=== PATIENT | female | born 1970 | race Caucasian/White ===

== ENCOUNTER → 2019-12-28 14:11 | Outpatient (BNVA) | payer MEDICAID, SELFPAY | PROVIDERS: Family Provider Internal Medicine; PCP Internal Medicine; Visit Provider Psychiatry & Neurology Psychiatry | DX: F33.42 Major depressive disorder, recurrent, in full remission (principal); F17.210 Nicotine dependence, cigarettes, uncomplicated | CPT/HCPCS: 99213 ==

== ENCOUNTER 2020-04-01 07:38 | Outpatient (CLI) | payer MEDICAID, SELFPAY ==
--- NOTE | 2020-04-01 | MR_ITS ---
WS: [id number] MRI CERVICAL SPINE NONCONTRAST TECHNIQUE: Sagittal T1, T2 and STIR imaging. Axial T2, gradient, and fiesta imaging. Images moderatel y degraded by patient motion. CLINICAL INFORMATION: OTHER SYMPTOMS INVOLVING MUSL SKEL COMPARISON: None. FINDINGS: Straightening of the normal cervical lordosis. Prominent central disc protrusion C4-5 with mild inden tation on cervical cord. Mild to moderate central canal stenosis. Cord signal appears normal. C2-C3: Normal. C3-C4: Mild disc bulging with slight effacement of ventral thecal sac. Mild left and no significant r ight foraminal narrowing. Spinal canal is patent. Mild facet arthropathy. C4-C5: Prominent central and right pericentral disc protrusion with indentation on the right ventral cervical cord. Mild to moderate central canal stenosis. Moderate left greater than right bony foramin al narrowing. C5-C6: Small right pericentral protrusion with slight contact cervical cord. Mild central canal steno sis. Mild to moderate bilateral foraminal narrowing. C6-C7: Small central disc protrusion. Spinal canal is patent. Mild right and no significant left fora maranda narrowing. C7-T1: Normal. Visualized brain stem structures: Normal. Prevertebral soft tissues: Normal. MR/MR cervical spin wo con* [id number] IMPRESSION: 1. Prominent right pericentral disc protrusion C4-5 extending cephalad posteri or to the C4 vertebral body. This results in mild to moderate central canal shruti nosis with slight indentation on the cervical cord eccentric to the right. 2. Small right pericentral protrusion C5-C6 with mild central canal stenosis. 3. Multilevel mild to moderate bony foraminal narrowing worse at bilateral C4- 5 and bilateral C5-6. 4. Tiny central protrusion C6-C7.
--- NOTE | 2020-04-01 08:45 | XR_ITS ---
WS: [id number] CERVICAL SPINE TECHNIQUE: 3 views of the cervical spine CLINICAL INFORMATION: pain COMPARISON: None. FINDINGS: Straightening of the normal cervical lordosis. Mild spondylitic changes. Disc space narrowing worse a t C4-5. Normal C1-2 articulation. Mild cervical curve convex right. Moderate facet arthropathy mid cervical spine. XR/XR cervical spine 3V* [id number] IMPRESSION: Mild spondylitic changes with disc space narrowing worse at C4-5.
== END 2020-04-01 07:39 | disposition home or self-care (01) ==
LOC: RADWPI 07:40
PROVIDERS: Family Provider Internal Medicine; PCP Internal Medicine; Visit Provider Orthopaedic Surgery
DX: R29.898 Other symptoms and signs involving the musculoskeletal system (principal); M50.221 Other cervical disc displacement at C4-C5 level; M48.02 Spinal stenosis, cervical region
CPT/HCPCS: 72040; 72141

== ENCOUNTER → 2020-09-11 11:57 | Outpatient (BNVA) | payer MEDICAID, SELFPAY | PROVIDERS: Family Provider Internal Medicine; PCP Internal Medicine; Visit Provider Psychiatry & Neurology Psychiatry | DX: F33.41 Major depressive disorder, recurrent, in partial remission (principal); F17.210 Nicotine dependence, cigarettes, uncomplicated | CPT/HCPCS: 99214 ==

== ENCOUNTER → 2020-10-08 08:16 | Outpatient (BNVA) | payer MEDICAID, SELFPAY | PROVIDERS: Family Provider Internal Medicine; PCP Internal Medicine; Visit Provider Psychiatry & Neurology Psychiatry | DX: F33.42 Major depressive disorder, recurrent, in full remission (principal); F17.210 Nicotine dependence, cigarettes, uncomplicated | CPT/HCPCS: 99213 ==

== ENCOUNTER → 2020-11-14 09:47 | Outpatient (BNVA) | payer MEDICAID, SELFPAY | PROVIDERS: PCP Internal Medicine; Visit Provider Podiatrist Foot & Ankle Surgery | DX: M79.672 Pain in left foot (principal) | CPT/HCPCS: 73630 ==

== ENCOUNTER 2020-11-14 11:23 | Outpatient (CLI) | payer MEDICAID, SELFPAY | END 2020-11-14 11:24 | disposition home or self-care (01) | LOC: SPT 11:23 | PROVIDERS: PCP Internal Medicine; Visit Provider Podiatrist Foot & Ankle Surgery | DX: Z46.89 Encounter for fitting and adjustment of other specified devices (principal); S91.102D Unspecified open wound of left great toe without damage to nail, subsequent encounter; X58.XXXD Exposure to other specified factors, subsequent encounter | CPT/HCPCS: 97760; L4361 ==

== ENCOUNTER → 2021-03-14 08:30 | Outpatient (BNVA) | payer MEDICAID, SELFPAY | PROVIDERS: PCP Internal Medicine; Visit Provider Psychiatry & Neurology Psychiatry | DX: F33.42 Major depressive disorder, recurrent, in full remission (principal); F17.210 Nicotine dependence, cigarettes, uncomplicated | CPT/HCPCS: 99213 ==

== ENCOUNTER → 2021-05-02 12:51 | Outpatient (BNVA) | payer MEDICAID, SELFPAY | PROVIDERS: PCP Internal Medicine; Visit Provider Psychiatry & Neurology Psychiatry | DX: F33.42 Major depressive disorder, recurrent, in full remission (principal); F17.210 Nicotine dependence, cigarettes, uncomplicated | CPT/HCPCS: 99213 ==

== ENCOUNTER → 2021-05-12 09:21 | Outpatient (BNVA) | payer MEDICAID, SELFPAY | PROVIDERS: PCP Internal Medicine; Referring Provider Internal Medicine; Visit Provider Orthopaedic Surgery | DX: M25.569 Pain in unspecified knee (principal); M17.12 Unilateral primary osteoarthritis, left knee | CPT/HCPCS: 73560; 73565 ==

== ENCOUNTER 2021-06-08 16:12 | Emergency (ER) | payer MEDICAID, SELFPAY ==
[2021-06-08 16:30] VITALS: BP 127/73; PULSE 82; RESP 19; TEMP 36.9; O2SAT 92
--- NOTE | 2021-06-08 17:07 | ED_ITS ---
Documented by User: Everett Rhodes MD 06/10/21 14:42 HPI - General Adult General: Chief complaint: General Medical Stated complaint: COUGH NAUSEA SOB Time Seen by Provider: 06/08/21 17:13 History of Present Illness: HPI narrative: Ms. Rodríguez is a 50-year-old lady with significant past medical history of hypertension, hyperlipidemia, insulin- dependent diabetic, tobaccoism who presents emergency department due to shortness of breath, cough, and loss of voice. Symptom onset was gradual approximately 2 weeks ago. She initially had a loss of voice however subsequently developed cough. She has a sore throat and generalized malaise. Overall the course of symptoms has been worsening. She has not tried home medications. Her symptoms are worse with coughing and talking but do not go with rest. There is no trismus associated with her symptoms. No pharyngeal lesions reported. No other specific exacerbating or alleviating factors Review of Systems General: Reports: 10 or more systems reviewed and unremarkable except in HPI and below Narrative: CONSTITUTIONAL: denies fever, fatigue, weakness EYES - denies pain, denies loss of vision EARS - denies ear issues. NOSE - denies congestion or rhinorrhea. THROAT -mildly sore throat but denies difficulty swallowing. Raspy voice without trismus, evidence of intraoral asymmetry or infection. CARDIOVASCULAR - denies chest pain and palpitations RESPIRATORY -mild shortness of breath and cough GASTROINTESTINAL - denies abdominal pain, no nausea vomiting, no changes in bowel habits GENITOURINARY - denies dysuria or urinary frequency MUSCULOSKELETAL- denies deformity or pain SKIN - denies rashes or new changed skin lesions NEUROLOGIC - denies focal weakness or sensory changes HEMATOLOGIC/LYMPHATIC - denies easy bruising or lymphadenopathy. CR[facility]ICAL ACCESS [facility]OSPITAL ED PFSH: Medical History Cervical radiculopathy Cigarette smoker Depression, major, recurrent, in complete remission Diabetes mellitus Hypertension Surgical History History of carpal tunnel release History of knee surgery Family History Other Diabetes Denies family history of Cancer Social History Quit status (tobacco): not considering quitting Second hand smoke exposure: No Alcohol intake: never Household members: other Details: Friend Current occupational status: employed Current occupation: [employer], closed right now due to Covid-19 Physical Exam Narrative: EXAM NARRATIVE: GENERAL/CONSTITUTIONAL -mildly ill-appearing. No acute distress. Raspy quiet voice that is strained Eyes - PERRL, no conjunctival injection ENMT - Atraumatic external nose and ears. Moist mucous membranes NECK - supple. trachea midline CARDIOVASCULAR - regular rate and rhythm. Peripheral pulses 2+ and equal RESPIRATORY -moderately diminished to auscultation bilaterally. No retractions or accessory muscle use. ABDOMEN/GI - Nontender/Nondistended. No tenderness to percussion or evidence of peritonitis MSK - Extremities without obvious deformity or tenderness to palpation SKIN - Warm, Dry NEURO - alert and appropriately oriented. strength and sensation intact. Moves all extremities equally. PSYCH - Appropriate mood and affect Course ED course: - Patient was seen and evaluated by me at bedside - Patient placed on cardiac monitors, IV access obtained - Initial evaluation notable for mildly ill appearance, increased respiratory effort, raspy voice. no evidence of upper airway compromise or other intraoral/pharyngeal pathology -Symptom control ordered. -Patient care handed off to overnight ED physician 50 completion of imaging and reevaluation for symptom care. Vital Signs: Vital signs: Vital Signs Temperature 98.5 F 06/08/21 16:30 Pulse Rate 88 06/08/21 21:20 Respiratory Rate 22 H 06/08/21 21:20 Blood Pressure 168/98 06/08/21 21:20 Pulse Oximetry 90 06/08/21 21:20 MDM - General Adult Medical Records: Attestation: I reviewed the patient's medical records. Lab Data: Attestation: I reviewed the patient's lab results. Labs: Lab Results 06/08/21 06/08/21 Range/Units 18:27 18:27 WBC 7.1 (4.0-10.0) 10^3/ uL RBC 4.89 (4.1-5.3) 10^6/u L Hgb 14.7 (11.5-15.3) g/dL Hct 45.0 (37.0-47.0) % MCV 92.0 (81-99) fl MCH 30.1 (28.0-34.0) pg MCHC 32.7 (30.0-36.0) g/dL RDW 15.6 H (12.1-15.1) % Plt Count 198 (130-400) 10^3/c mm MPV 10.9 H (7.4-10.4) fL Neut % (Auto) 54.5 % Lymph % (Auto) 31.0 % Hartley % (Auto) 9.0 % Eos % (Auto) 3.1 % Baso % (Auto) 2.1 % Neut # (Auto) 3.86 (1.8-7.7) 10^3/u L Lymph # (Auto) 2.2 (0.8-4.8) 10^3/u L Hartley # (Auto) 0.6 (0.2-0.9) 10^3/u L Eos # (Auto) 0.2 (0.0-0.8) 10^3/u L Baso # (Auto) 0.2 H (0.0-0.1) 10^3/u L Nucleated RBC % (a uto) 0 % Nucleated RBCs # 0.0 /100WBC Sodium 140 (136-145) mmol/L Potassium 4.4 (3.5-5.1) mmol/L Chloride 101 (98-107) mmol/L Carbon Dioxide 27 (22-29) mmol/L Anion Gap 16.4 (5-19) BUN 22 H (6-20) mg/dL Creatinine 0.9 (0.5-0.9) mg/dL GFR Calculation 66.3 L (90-130) mL/min Glucose 161 H (65-115) mg/dL Calculated Osmolal ity 297 H (285-295) mOsm/k g Calcium 10.0 (8.5-10.5) mg/dL Procalcitonin 0.07 (0-0.5) ng/mL Discharge Plan Discharge Patient Disposition: Home Clinical Impression: Laryngitis, COPD with acute exacerbation Condition: Stable Prescriptions: New albuterol sulfate 90 mcg/actuation HFA aerosol inhaler 2 inh inhalation Q8H PRN (Reason: shortness of breath or wheezing) Qty: 8.5 RF: 0 doxycycline hyclate 100 mg capsule 100 mg PO BID 10 Days Qty: 20 RF: 0 prednisone 50 mg tablet 50 mg PO DAILY 5 Days RF: 0 No Action multivitamin [Daily Multi-Vitamin] Tablet 1 tab PO DAILY RF: 0 apple cider vinegar 600 mg capsule See Rx Instructions PO .dily RF: 0 meloxicam 15 mg tablet 15 mg PO DAILY Qty: 30 RF: 0 Lantus U-100 Insulin 100 unit/mL solution 100 unit SUBCUT DAILY RF: 0 hydrochlorothiazide 25 mg tablet 25 mg PO DAILY RF: 0 lisinopril 40 mg tablet 40 mg PO DAILY RF: 0 Jardiance 10 mg tablet 10 mg PO DAILY RF: 0 omeprazole 20 mg capsule,delayed release(DR/EC) 20 mg PO DAILY RF: 0 amlodipine 5 mg tablet 5 mg PO DAILY RF: 0 Tresiba FlexTouch U-200 200 unit/mL (3 mL) insulin pen 10 unit SUBCUT .QHS RF: 0 pregabalin [Lyrica] 75 mg capsule 75 mg PO TID RF: 0 metformin 1,000 mg tablet 500 mg PO BID RF: 0 (DME) Articulating AFO to the right See Rx Instructions .Route .MEDSUPPLY Qty: 1 RF: 0 (DME) Diabetic Shoes See Rx Instructions .ROUTE .MEDSUPPLY Qty: 1 RF: 0 citalopram [Celexa] 40 mg tablet 40 mg PO DAILY Qty: 30 RF: 11 trazodone 150 mg tablet 150 mg PO .QHS Qty: 30 RF: 11 Discharge Orders: Discharge ED (Routine); Ordered 06/08/21 Ordered By: Melvin Bolaños Referrals: Usman Arzate DO [Primary Care Provider] - Discharge Diet: Usual diet Discharge Activity: Resume usual activity Patient Instructions: Laryngitis (ED), Chronic Obstructive Pulmonary Disease (ED), Opioid Safety Activity Restrictions/Additional Instructions: Thank you for visiting the emergency department. You were seen and evaluated for voice change. The exact cause of this is unclear however you were also noted to be short of breath. You likely have a combination of illnesses including laryngitis and COPD exacerbation. You will be given prescriptions. You may use [id number] medications however please keep in mind that many namebrand medications contain the same active ingredients. Please follow-up with your primary care provider. Please take the complete course of antibiotics even if your symptoms improved. Please return the emergency department for any reason that you are concerned about and feel needs emergency department evaluation. Coding Level of Care Code ED Global Marketing Operations Manager for Chg Fwd Documented by User: Melvin Bolaños, DO 06/08/21 20:29 HPI - General Adult General: Chief complaint: General Medical Stated complaint: COUGH NAUSEA SOB Time Seen by Provider: 06/08/21 17:13 PFSH ED PFSH: Medical History Cervical radiculopathy Cigarette smoker Depression, major, recurrent, in complete remission Diabetes mellitus Hypertension Surgical History History of carpal tunnel release History of knee surgery Family History Other Diabetes Denies family history of Cancer Social History Quit status (tobacco): not considering quitting Second hand smoke exposure: No Alcohol intake: never Household members: other Details: Friend Current occupational status: employed Current occupation: [employer], closed right now due to Covid-19 Course Vital Signs: Vital signs: Vital Signs Temperature 98.5 F 06/08/21 16:30 Pulse Rate 88 06/08/21 21:20 Respiratory Rate 22 H 06/08/21 21:20 Blood Pressure 168/98 06/08/21 21:20 Pulse Oximetry 90 06/08/21 21:20 MDM - General Adult MDM Narrative: Medical decision making narrative: 50-year-old female checked out to me at shift change by Dr. Conte. This lady has benign laboratory. Her vitals are good. She is experiencing symptoms likely of COPD exacerbation with some laryngitis. She will be placed on doxycycline and prednisone for this. She notes that return or follow-up for any problems. She was warned about steroids increasing her blood sugar. Lab Data: Labs: Lab Results 06/08/21 06/08/21 Range/Units 18:27 18:27 WBC 7.1 (4.0-10.0) 10^3/ uL RBC 4.89 (4.1-5.3) 10^6/u L Hgb 14.7 (11.5-15.3) g/dL Hct 45.0 (37.0-47.0) % MCV 92.0 (81-99) fl MCH 30.1 (28.0-34.0) pg MCHC 32.7 (30.0-36.0) g/dL RDW 15.6 H (12.1-15.1) % Plt Count 198 (130-400) 10^3/c mm MPV 10.9 H (7.4-10.4) fL Neut % (Auto) 54.5 % Lymph % (Auto) 31.0 % Hartley % (Auto) 9.0 % Eos % (Auto) 3.1 % Baso % (Auto) 2.1 % Neut # (Auto) 3.86 (1.8-7.7) 10^3/u L Lymph # (Auto) 2.2 (0.8-4.8) 10^3/u L Hartley # (Auto) 0.6 (0.2-0.9) 10^3/u L Eos # (Auto) 0.2 (0.0-0.8) 10^3/u L Baso # (Auto) 0.2 H (0.0-0.1) 10^3/u L Nucleated RBC % (a uto) 0 % Nucleated RBCs # 0.0 /100WBC Sodium 140 (136-145) mmol/L Potassium 4.4 (3.5-5.1) mmol/L Chloride 101 (98-107) mmol/L Carbon Dioxide 27 (22-29) mmol/L Anion Gap 16.4 (5-19) BUN 22 H (6-20) mg/dL Creatinine 0.9 (0.5-0.9) mg/dL GFR Calculation 66.3 L (90-130) mL/min Glucose 161 H (65-115) mg/dL Calculated Osmolal ity 297 H (285-295) mOsm/k g Calcium 10.0 (8.5-10.5) mg/dL Procalcitonin 0.07 (0-0.5) ng/mL Discharge Plan Discharge Patient Disposition: Home Clinical Impression: Laryngitis, COPD with acute exacerbation Condition: Stable Prescriptions: New albuterol sulfate 90 mcg/actuation HFA aerosol inhaler 2 inh inhalation Q8H PRN (Reason: shortness of breath or wheezing) Qty: 8.5 RF: 0 doxycycline hyclate 100 mg capsule 100 mg PO BID 10 Days Qty: 20 RF: 0 prednisone 50 mg tablet 50 mg PO DAILY 5 Days RF: 0 No Action multivitamin [Daily Multi-Vitamin] Tablet 1 tab PO DAILY RF: 0 apple cider vinegar 600 mg capsule See Rx Instructions PO .dily RF: 0 meloxicam 15 mg tablet 15 mg PO DAILY Qty: 30 RF: 0 Lantus U-100 Insulin 100 unit/mL solution 100 unit SUBCUT DAILY RF: 0 hydrochlorothiazide 25 mg tablet 25 mg PO DAILY RF: 0 lisinopril 40 mg tablet 40 mg PO DAILY RF: 0 Jardiance 10 mg tablet 10 mg PO DAILY RF: 0 omeprazole 20 mg capsule,delayed release(DR/EC) 20 mg PO DAILY RF: 0 amlodipine 5 mg tablet 5 mg PO DAILY RF: 0 Tresiba FlexTouch U-200 200 unit/mL (3 mL) insulin pen 10 unit SUBCUT .QHS RF: 0 pregabalin [Lyrica] 75 mg capsule 75 mg PO TID RF: 0 metformin 1,000 mg tablet 500 mg PO BID RF: 0 (DME) Articulating AFO to the right See Rx Instructions .Route .MEDSUPPLY Qty: 1 RF: 0 (DME) Diabetic Shoes See Rx Instructions .ROUTE .MEDSUPPLY Qty: 1 RF: 0 citalopram [Celexa] 40 mg tablet 40 mg PO DAILY Qty: 30 RF: 11 trazodone 150 mg tablet 150 mg PO .QHS Qty: 30 RF: 11 Discharge Orders: Discharge ED (Routine); Ordered 06/08/21 Ordered By: Melvin Bolaños Referrals: Usman Arzate DO [Primary Care Provider] - Discharge Diet: Usual diet Discharge Activity: Resume usual activity Patient Instructions: Laryngitis (ED), Chronic Obstructive Pulmonary Disease (ED), Opioid Safety Activity Restrictions/Additional Instructions: Thank you for visiting the emergency department. You were seen and evaluated for voice change. The exact cause of this is unclear however you were also noted to be short of breath. You likely have a combination of illnesses including laryngitis and COPD exacerbation. You will be given prescriptions. You may use [id number] medications however please keep in mind that many namebrand medications contain the same active ingredients. Please follow-up with your primary care provider. Please take the complete course of antibiotics even if your symptoms improved. Please return the emergency department for any reason that you are concerned about and feel needs emergency department evaluation. Coding Level of Care Code ED Global Marketing Operations Manager for Chg Fwd Documented by User: Emery Galarza DO 06/08/21 23:04 HPI - General Adult General: Chief complaint: General Medical Stated complaint: COUGH NAUSEA SOB Time Seen by Provider: 06/08/21 17:13 [facility] ED PFSH: Medical History Cervical radiculopathy Cigarette smoker Depression, major, recurrent, in complete remission Diabetes mellitus Hypertension Surgical History History of carpal tunnel release History of knee surgery Family History Other Diabetes Denies family history of Cancer Social History Quit status (tobacco): not considering quitting Second hand smoke exposure: No Alcohol intake: never Household members: other Details: Friend Current occupational status: employed Current occupation: [employer], closed right now due to Covid-19 Course ED course: This patient was not seen by me at any time during this emergency department visit. Through electronic error this chart was assigned to my name as well. Vital Signs: Vital signs: Vital Signs Temperature 98.5 F 06/08/21 16:30 Pulse Rate 88 06/08/21 21:20 Respiratory Rate 22 H 06/08/21 21:20 Blood Pressure 168/98 06/08/21 21:20 Pulse Oximetry 90 06/08/21 21:20 MDM - General Adult Lab Data: Labs: Lab Results 06/08/21 06/08/21 Range/Units 18:27 18:27 WBC 7.1 (4.0-10.0) 10^3/ uL RBC 4.89 (4.1-5.3) 10^6/u L Hgb 14.7 (11.5-15.3) g/dL Hct 45.0 (37.0-47.0) % MCV 92.0 (81-99) fl MCH 30.1 (28.0-34.0) pg MCHC 32.7 (30.0-36.0) g/dL RDW 15.6 H (12.1-15.1) % Plt Count 198 (130-400) 10^3/c mm MPV 10.9 H (7.4-10.4) fL Neut % (Auto) 54.5 % Lymph % (Auto) 31.0 % Hartley % (Auto) 9.0 % Eos % (Auto) 3.1 % Baso % (Auto) 2.1 % Neut # (Auto) 3.86 (1.8-7.7) 10^3/u L Lymph # (Auto) 2.2 (0.8-4.8) 10^3/u L Hartley # (Auto) 0.6 (0.2-0.9) 10^3/u L Eos # (Auto) 0.2 (0.0-0.8) 10^3/u L Baso # (Auto) 0.2 H (0.0-0.1) 10^3/u L Nucleated RBC % (a uto) 0 % Nucleated RBCs # 0.0 /100WBC Sodium 140 (136-145) mmol/L Potassium 4.4 (3.5-5.1) mmol/L Chloride 101 (98-107) mmol/L Carbon Dioxide 27 (22-29) mmol/L Anion Gap 16.4 (5-19) BUN 22 H (6-20) mg/dL Creatinine 0.9 (0.5-0.9) mg/dL GFR Calculation 66.3 L (90-130) mL/min Glucose 161 H (65-115) mg/dL Calculated Osmolal ity 297 H (285-295) mOsm/k g Calcium 10.0 (8.5-10.5) mg/dL Procalcitonin 0.07 (0-0.5) ng/mL Discharge Plan Discharge Patient Disposition: Home Clinical Impression: Laryngitis, COPD with acute exacerbation Condition: Stable Prescriptions: New albuterol sulfate 90 mcg/actuation HFA aerosol inhaler 2 inh inhalation Q8H PRN (Reason: shortness of breath or wheezing) Qty: 8.5 RF: 0 doxycycline hyclate 100 mg capsule 100 mg PO BID 10 Days Qty: 20 RF: 0 prednisone 50 mg tablet 50 mg PO DAILY 5 Days RF: 0 No Action multivitamin [Daily Multi-Vitamin] Tablet 1 tab PO DAILY RF: 0 apple cider vinegar 600 mg capsule See Rx Instructions PO .dily RF: 0 meloxicam 15 mg tablet 15 mg PO DAILY Qty: 30 RF: 0 Lantus U-100 Insulin 100 unit/mL solution 100 unit SUBCUT DAILY RF: 0 hydrochlorothiazide 25 mg tablet 25 mg PO DAILY RF: 0 lisinopril 40 mg tablet 40 mg PO DAILY RF: 0 Jardiance 10 mg tablet 10 mg PO DAILY RF: 0 omeprazole 20 mg capsule,delayed release(DR/EC) 20 mg PO DAILY RF: 0 amlodipine 5 mg tablet 5 mg PO DAILY RF: 0 Tresiba FlexTouch U-200 200 unit/mL (3 mL) insulin pen 10 unit SUBCUT .QHS RF: 0 pregabalin [Lyrica] 75 mg capsule 75 mg PO TID RF: 0 metformin 1,000 mg tablet 500 mg PO BID RF: 0 (DME) Articulating AFO to the right See Rx Instructions .Route .MEDSUPPLY Qty: 1 RF: 0 (DME) Diabetic Shoes See Rx Instructions .ROUTE .MEDSUPPLY Qty: 1 RF: 0 citalopram [Celexa] 40 mg tablet 40 mg PO DAILY Qty: 30 RF: 11 trazodone 150 mg tablet 150 mg PO .QHS Qty: 30 RF: 11 Discharge Orders: Discharge ED (Routine); Ordered 06/08/21 Ordered By: Melvin Bolaños Referrals: Usman Arzate DO [Primary Care Provider] - Discharge Diet: Usual diet Discharge Activity: Resume usual activity Patient Instructions: Laryngitis (ED), Chronic Obstructive Pulmonary Disease (ED), Opioid Safety Activity Restrictions/Additional Instructions: Thank you for visiting the emergency department. You were seen and evaluated for voice change. The exact cause of this is unclear however you were also noted to be short of breath. You likely have a combination of illnesses including laryngitis and COPD exacerbation. You will be given prescriptions. You may use yqir-pif-ghyghsk medications however please keep in mind that many namebrand medications contain the same active ingredients. Please follow-up with your primary care provider. Please take the complete cour se of antibiotics even if your symptoms improved. Please return the emergency department for any reason that you are concerned about and feel needs emergency department evaluation. Coding Level of Care Code ED Global Marketing Operations Manager for Blayne Coello
--- NOTE | 2021-06-08 17:24 | XRR_ITS ---
PROCEDURE INFORMATION: Exam: XR Chest Exam date and time: 06/08/2021 5:24 PM Age: 50 years old Clinical indication: Shortness of breath; Additional info: SOB TECHNIQUE: Imaging protocol: XR of the chest. Views: 1 view. COMPARISON: CR XR cervical spine 3V* [id number] 04/01/2020 9:00 AM FINDINGS: Lungs: Unremarkable. No consolidation. Pleural spaces: Unremarkable. No pleural effusion. No pneumothorax. Heart/Mediastinum: Unremarkable. No cardiomegaly. Bones/joints: Unremarkable. XR/XR chest 1V portable [id number] IMPRESSION: No acute findings.
[2021-06-08] MEDS: acetaminophen 500 mg Tablet 1000 MG PO (18:19)
[2021-06-08] MEDS: ketorolac 30 mg/mL INJ 15 MG IVP (18:19)
[2021-06-08] MEDS: lidocaine 2% viscous 1.667 ML, diphenhydrAMINE oral liq 4.165 MG, aluminum-mag hydrox-s... MUCOUS MEM (18:19)
[2021-06-08] MEDS: lactated ringers 1,000 ML 999 ML IV (18:21)
[2021-06-08 18:22] VITALS: BP 146/92; PULSE 72; RESP 16; O2SAT 92
[2021-06-08 18:53] LABS: Basophils # 0.2 10^3/uL (0.0-0.1); Basophils % 2.1 %; Eosinophils # 0.2 10^3/uL (0.0-0.8); Eosinophils % 3.1 %; Hemoglobin 14.7 g/dL (11.5-15.3); Lymphocytes # 2.2 10^3/uL (0.8-4.8); Mean Corpuscular HGB Conc 32.7 g/dL (30.0-36.0); Mean Corpuscular Hemoglobin 30.1 pg (28.0-34.0); Mean Platelet Volume 10.9 fL (7.4-10.4); Monocytes # 0.6 10^3/uL (0.2-0.9); Neutrophils # 3.86 10^3/uL (1.8-7.7); Neutrophils % 54.5 %; Nucleated Red Blood Cells % 0 %; Platelet Count 198 10^3/cmm (130-400); Red Blood Count 4.89 10^6/uL (4.1-5.3); Red Cell Distribution Width 15.6 % (12.1-15.1); White Blood Count 7.1 10^3/uL (4.0-10.0)
[2021-06-08 19:33] LABS: Anion Gap 16.4 (5-19); Blood Urea Nitrogen 22 mg/dL (6-20); Carbon Dioxide 27 mmol/L (22-29); Chloride 101 mmol/L (98-107); Glomerular Filtration Rate 66.3 mL/min (90-130); Glucose 161 mg/dL (65-115); Osmolality Calculated 297 mOsm/kg (285-295); Potassium 4.4 mmol/L (3.5-5.1); Sodium 140 mmol/L (136-145)
[2021-06-08 19:39] LABS: Procalcitonin 0.07 ng/mL (0-0.5)
[2021-06-08 20:46] VITALS: PULSE 78; RESP 22; O2SAT 91
[2021-06-08 21:20] VITALS: BP 168/98; PULSE 88; RESP 22; O2SAT 90
== END 2021-06-08 21:21 | disposition home or self-care (01) ==
PROVIDERS: Emergency Medicine; Emergency Provider Emergency Medicine; PCP Internal Medicine
DX: J44.1 Chronic obstructive pulmonary disease with (acute) exacerbation (principal); J04.0 Acute laryngitis; Z79.4 Long term (current) use of insulin; E11.9 Type 2 diabetes mellitus without complications; I10 Essential (primary) hypertension
CPT/HCPCS: 71045; 80048; 84145; 85025; 94640; 96361; 96374; 96375; 99284; J1885; J2930; J3535; J7611

== ENCOUNTER 2021-08-21 10:08 | Outpatient (CLI) | payer MEDICAID, SELFPAY ==
--- NOTE | 2021-08-21 10:37 | ECG_ITS ---
[facility] Test Date: 2021-08-21 Pat Name: Tawana Fischer Department: Room: Gender: Female Product Builder: : 1970 Requested By: Rashawn Vicente Order Number: [id number] Mallory MD: Yessica Alexis M.D. Measurements Intervals [place] Rate: 75 P: 53 AL: 161 QRS: -5 QRSD: 82 T: 64 QT: 393 QTc: 441 Interpretive Statements SINUS RHYTHM LOW QRS VOLTAGE IN PRECORDIAL LEADS [QRS DEFLECTION < 1.0 mV IN CHEST LEADS] No previous ECG available for comparison Electronically Signed On 08-21-2021 23:59:12 CDT by Yessica Alexis M.D. [email or web address]
[2021-08-21 11:21] LABS: Basophils # 0.1 10^3/uL (0.0-0.1); Basophils % 1.5 %; Eosinophils # 0.2 10^3/uL (0.0-0.8); Eosinophils % 2.9 %; Hematocrit 41.9 % (37.0-47.0); Hemoglobin 13.1 g/dL (11.5-15.3); Lymphocytes # 1.8 10^3/uL (0.8-4.8); Lymphocytes % 33.3 %; Mean Corpuscular HGB Conc 31.3 g/dL (30.0-36.0); Mean Corpuscular Hemoglobin 29.3 pg (28.0-34.0); Mean Corpuscular Volume 93.7 fl (81-99); Mean Platelet Volume 9.5 fL (7.4-10.4); Monocytes # 0.4 10^3/uL (0.2-0.9); Monocytes % 7.9 %; Neutrophils # 2.95 10^3/uL (1.8-7.7); Neutrophils % 54.2 %; Nucleated Red Blood Cells % 0 %; Platelet Count 223 10^3/cmm (130-400); Red Blood Count 4.47 10^6/uL (4.1-5.3); Red Cell Distribution Width 15.9 % (12.1-15.1); White Blood Count 5.4 10^3/uL (4.0-10.0)
[2021-08-21 11:49] LABS: Anion Gap 12.2 (5-19); Blood Urea Nitrogen 10 mg/dL (6-20); Calcium 9.3 mg/dL (8.5-10.5); Carbon Dioxide 27 mmol/L (22-29); Chloride 103 mmol/L (98-107); Glomerular Filtration Rate 105.8 mL/min (90-130); Glucose 118 mg/dL (65-115); Osmolality Calculated 286 mOsm/kg (285-295); Potassium 4.2 mmol/L (3.5-5.1); Sodium 138 mmol/L (136-145)
== END 2021-08-21 10:09 | disposition home or self-care (01) ==
LOC: RT 10:12
PROVIDERS: PCP Internal Medicine; Visit Provider Specialist
DX: R49.0 Dysphonia (principal); R94.31 Abnormal electrocardiogram [ECG] [EKG]
CPT/HCPCS: 80048; 85025; 93005

== ENCOUNTER → 2023-03-23 09:13 | Outpatient (BNVA) | payer MEDICAID, SELFPAY | PROVIDERS: PCP Internal Medicine; Visit Provider Podiatrist Foot & Ankle Surgery | DX: E11.42 Type 2 diabetes mellitus with diabetic polyneuropathy (principal); L60.3 Nail dystrophy; R23.4 Changes in skin texture; Z79.4 Long term (current) use of insulin; Z79.84 Long term (current) use of oral hypoglycemic drugs | CPT/HCPCS: 11055; 11721 ==